=== PATIENT | female | born 1960 | race Hispanic/Latino ===

== ENCOUNTER 2023-02-04 20:17 | Emergency (ER) | payer SELFPAY ==
[2023-02-04 21:08] LABS: Absolute Lymphocytes (CBC) 2.6 K/uL (0.7-4.9); Hematocrit 43.3 % (36.0-45.0); Lymphocytes % 36.6 % (15.3-44.8); MCV 91.1 fL (80-100); MPV 7.9 fL (7.6-11.3); RBC Red Blood Cell Count 4.75 M/uL (3.86-4.86)
[2023-02-04 21:15] LABS: Protime INR 1.04
--- NOTE | 2023-02-04 21:20 | RAD REPORT ---
EXAM DESCRIPTION: RAD - Chest Single View - 02/04/2023 9:14 pm CLINICAL HISTORY: HTN Urgency Chest pain. COMPARISON: CHEST SINGLE VIEW dated 10/13/2008 FINDINGS: Portable technique limits examination quality. Mild pulmonary edema. The heart is moderately enlarged. No displaced fractures.Sternotomy wires. IMPRESSION: Mild CHF.
--- NOTE | 2023-02-04 21:21 | RAD REPORT ---
EXAM DESCRIPTION: CT - Head Brain Wo Cont - 02/04/2023 9:13 pm CLINICAL HISTORY: HEADACHE Headache, drowsiness COMPARISON: No comparisons TECHNIQUE: All CT scans are performed using dose optimization technique as appropriate and may inclu de automated exposure control or mA/KV adjustment according to patient size. FINDINGS: No intracranial hemorrhage, hydrocephalus or extra-axial fluid collection.No areas of brai n edema or evidence of midline shift. Mild vertebral atherosclerosis. The paranasal sinuses and mastoids are clear. The calvarium is intact. IMPRESSION: No acute intracranial abnormality.
[2023-02-04] MEDS ORDERED: HYDROMORPHONE HCL 0.5 MG/0.5 ML INJ ONE (21:39)
[2023-02-04] MEDS ORDERED: LABETALOL 20 MG/4ML SYRINGE IV ONE ×2 (21:39→23:15)
[2023-02-04] MEDS ORDERED: ONDANSETRON 4 MG/2 ML VIAL ONE (21:39)
[2023-02-04 21:42] LABS: Albumin 3.4 g/dL (3.4-5.0); Bilirubin Direct 0.1 mg/dL (0-0.2); Bilirubin Total 0.5 mg/dL (0.2-1.0); Potassium 3.3 mmol/L (3.5-5.1); Protein, Total 8.2 g/dL (6.4-8.2); Troponin High Sensitivity 13.9 pg/mL (<58.9)
[2023-02-05 03:12] VITALS: O2SAT 99
[2023-02-05 03:13] VITALS: BP 168/68; TEMP 98.1
--- NOTE | 2023-02-05 13:03 | EKG ---
Test Date: 2023-02-04 Test Time: 20:39:55 Wool Mixer: LL MEASUREMENT RESULTS: Intervals: Rate: 65 LA: 136 QRSD: 78 QT: 436 QTc: 453 [place]: P: 41 LA: 136 QRS: 16 T: 73 INTERPRETIVE STATEMENTS: Normal sinus rhythm Normal ECG Compared to ECG 10/16/2008 19:48:29 No significant changes Electronically Signed On 02-05-23 13:01:26 TOOLMAKER GRADE THREE by Brant Cheng
--- NOTE | 2023-02-05 13:03 | EKG ---
Test Date: 2023-02-04 Test Time: 21:04:32 Case Loader Operator: NATA MEASUREMENT RESULTS: Intervals: Rate: 78 NM: 138 QRSD: 80 QT: 424 QTc: 483 [place]: P: 63 NM: 138 QRS: 28 T: 73 INTERPRETIVE STATEMENTS: Sinus rhythm with occasional premature ventricular complexes Prolonged QT Abnormal ECG Compared to ECG 02/04/2023 20:39:55 Ventricular premature complex(es) now present Prolonged QT interval now present Electronically Signed On 02-05-23 13:01:23 OFFICE ADMIN by Brant Cheng
--- NOTE | 2023-02-21 14:20 | ER ---
Nurse's Notes [facility] Name: Kaylen Mead Age: 62 yrs Sex: Female : 1960 Arrival Date: 02/04/2023 Time: 20:19 Bed Treatment Private MD: Diagnosis: Hypertensive Urgency Presentation: 02/04 20:26 Chief complaint: Patient states: C/o chest pain, H/A, N/V, states pain is 10/10. ll3 Coronavirus screen: Vaccine status: Patient reports receiving the 2nd dose of the covid vaccine. headache, muscle pain, nausea, vomiting. Ebola Screen: No symptoms or risks identified at this time. Initial Sepsis Screen: Does the patient meet any 2 criteria? No. Patient's initial sepsis screen is negative. Does the patient have a suspected source of infection? No. Patient's initial sepsis screen is negative. Risk Assessment: Do you want to hurt yourself or someone else? Patient reports no desire to harm self or others. Onset of symptoms was February 04, 2023. Care prior to arrival: Medication(s) given: Motrin, at 1830. 20:26 Method Of Arrival: Ambulatory ll3 20:26 Acuity: SANTHOSH 2 ll3 Triage Assessment: 21:08 General: Appears in no apparent distress. uncomfortable, Behavior is calm, cooperative. kr3 Historical: - Allergies: 20:33 Ultram; ll3 - Home Meds: 20:33 Glipizide Oral [Active]; Atenolol Oral [Active]; ll3 - PMHx: 20:33 Diabetes mellitus; Hypertensive disorder; ll3 - PSHx: 20:33 triple bipass; Total abdominal hysterectomy; ll3 - Immunization history:: Client reports receiving the 2nd dose of the Covid vaccine. - Social history:: Smoking status: Patient denies any tobacco usage or history of. Screenin:08 [facility] ED Fall Risk Assessment (Adult) History of falling in the last 3 months, kr3 including since admission No falls in past 3 months (0 pts) Confusion or Disorientation No (0 pts) Intoxicated or Sedated No (0 pts) Impaired Gait No (0 pts) Mobility Assist Device Used No (0 pt) Altered Elimination No (0 pt) Score/Fall Risk Level 0 - 2 = Low Risk Oriented to surroundings, Maintained a safe environment, Educated pt \T\ family on fall prevention, incl call for assistance when getting out of bed, Assessed \T\ reinforced patient's understanding of fall precautions, Hourly rounding (assess needs \T\ fall precautionary measures) done. Abuse screen: Denies threats or abuse. Nutritional screening: No deficits noted. Tuberculosis screening: No symptoms or risk factors identified. Assessment: 21:12 Reassessment: pt taken to CT via stretcher. mb9 21:30 General: Appears uncomfortable, ill, Behavior is cooperative. Pain: Complains of pain mb9 in chest and left side of head Pain radiates to back Pain currently is 10 out of 10 on a pain scale. Quality of pain is described as tightness Pain began suddenly. Neuro: [place] Agitation-Sedation Scale (RASS): 0 - Alert and Calm Level of Consciousness is awake, alert, obeys commands, Oriented to person, place, time, situation, Appropriate for age Plant Operator Control Room Operator are equal bilaterally Moves all extremities. Speech is normal, Facial symmetry appears normal, Pupils are PERRLA, Intact Reports headache. Cardiovascular: Heart tones S1 S2 absent Rhythm is regular. Respiratory: Airway is patent Respiratory effort is even, unlabored, Respiratory pattern is tachypnea. GI: Abdomen is round non-distended, Bowel sounds present X 4 quads. Abd is soft Abd is non tender X 4 quads Reports nausea, vomiting. 21:30 : No signs and/or symptoms were reported regarding the genitourinary system. EENT: No mb9 signs and/or symptoms were reported regarding the EENT system. Derm: Skin is pink, warm \T\ dry. Musculoskeletal: Range of motion: intact in all extremities. 22:56 Reassessment: Patient and/or family updated on plan of care and expected duration. Pain mb9 level reassessed. Patient is alert, oriented x 3, equal unlabored respirations, skin warm/dry/pink. Patient states feeling better. 23:44 Reassessment: Report given to MICKIE Gonzalez. mb9 02/05 00:42 General: Appears in no apparent distress. comfortable, Behavior is calm, cooperative. aa9 Neuro: Level of Consciousness is awake, alert, obeys commands, Oriented to person, place, time, situation. Respiratory: Airway is patent Respiratory effort is even, unlabored. 01:42 Reassessment: Patient appears in no apparent distress at this time. Patient and/or aa9 family updated on plan of care and expected duration. Pain level reassessed. Patient is alert, oriented x 3, equal unlabored respirations, skin warm/dry/pink. Patient states symptoms have improved. Vital Signs: 02/04 20:26 BP 236 / 88; Pulse 68; Resp 18; Temp 97.3(TE); Pulse Ox 100% on R/A; Weight 90.72 kg ll3 (R); Height 5 ft. 0 in. ; Pain 10/10; 21:32 BP 242 / 95; Pulse 78; Resp 32; Pulse Ox 98% ; mb9 21:54 BP 160 / 91; Pulse 84; Resp 24; Pulse Ox 95% on R/A; mb9 22:56 BP 170 / 89; Pulse 88; Resp 24; Pulse Ox 98% on R/A; mb9 23:15 BP 158 / 81; Pulse 76; Resp 23; Pulse Ox 97% on R/A; mb9 02/05 00:42 BP 157 / 72; Pulse 72; Resp 19 S; Pulse Ox 99% on R/A; aa9 01:41 BP 168 / 68; Pulse 73; Resp 17 S; Temp 98.1(O); Pulse Ox 99% on R/A; aa9 02/04 20:26 Body Mass Index 39.06 (90.72 kg, 152.4 cm) ll3 02/04 20:26 Pain Scale: Adult ll3 ED Course: 02/04 20:19 Patient arrived in ED. ja2 20:33 Triage completed. ll3 20:33 Arm band placed on. ll3 20:37 Thelma Jasso MD is Attending Physician. sp3 20:45 Bed in low position. Call light in reach. Side rails up X 1. kr3 21:00 Basic Metabolic Panel Sent. jb5 21:00 CBC with Diff Sent. jb5 21:00 LFT's Sent. jb5 21:00 NT PRO-BNP Sent. jb5 21:00 PT-INR Sent. jb5 21:00 Troponin HS Sent. jb5 21:00 Inserted saline lock: 20 gauge in right antecubital area, using aseptic technique. jb5 Blood collected. 21:12 Basic Metabolic Panel Sent. mb9 21:12 CBC with Diff Sent. mb9 21:12 LFT's Sent. mb9 21:12 NT PRO-BNP Sent. mb9 21:12 PT-INR Sent. mb9 21:12 Troponin HS Sent. mb9 21:13 No provider procedures requiring assistance completed. mb9 21:14 CT Head Brain wo Cont In Process Unspecified. EDMS 21:15 XRAY Chest (1 view) In Process Unspecified. EDMS 21:43 Liz Asencio, RN is Primary Nurse. mb9 02/05 00:42 Troponin High Sensitivity: Draw 3 hours after first. Sent. aa9 01:42 IV discontinued, intact, bleeding controlled, No redness/swelling at site. Pressure aa9 dressing applied. Administered Medications: 02/04 21:38 Drug: HYDROmorphone IVP 0.5 mg Route: IVP; Site: right antecubital; mb9 23:04 Follow up: Response: No adverse reaction mb9 21:41 Drug: Labetalol IV 20 mg Route: IV; Rate: bolus; Infused Over: 2 mins; Site: right mb9 antecubital; 21:42 Drug: Ondansetron IVP 4 mg Route: IVP; Site: right antecubital; mb9 23:10 Follow up: Response: No adverse reaction mb9 23:15 Not Given (Physician Discretion): Labetalol IV 10 mg IV at calculated rate once mb9 Medication: 21:13 VIS not applicable for this client. mb9 Outcome: 02/05 01:32 Discharge ordered by . sp3 01:41 Discharged to home ambulatory, with significant other. aa9 01:41 Condition: stable 01:41 Discharge instructions given to patient, Instructed on discharge instructions, follow up and referral plans. medication usage, Demonstrated understanding of instructions, follow-up care. 01:42 Patient left the ED. aa9 Signatures: Dispatcher [employer] EDMS Antonieta Saravia jb5 Thelma Jasso MD MD sp3 Blanca Zafar Lynsea RN RN ll3 Lisa Ramirez RN RN aa9 Sadie Avendaño RN RN kr3 Liz Asencio, RN RN mb9
--- NOTE | 2023-02-21 14:20 | EDPHYS ---
Physician Documentation [facility] Name: Kaylen Mead Age: 62 yrs Sex: Female : 1960 Arrival Date: 02/04/2023 Time: 20:19 Bed Treatment Private MD: ED Physician Thelma Jasso HPI: 02/04 21:10 This 62 yrs old Female presents to ER via Ambulatory with complaints of sp3 Nausea/Vomiting, Chest Pain, Headache. 21:10 62-year-old female with history of diabetes and hypertension presents with chief sp3 complaint headache and chest tightness and hypertension at home. Patient states that earlier today she started having the symptoms and the headache was coupled with nausea. No prior history of cerebral bleed or CVA. Patient states she has had a prior "open heart surgery". Negative for neck pain, injury, back pain, shortness of breath, abdominal pain, diarrhea, rash, hematuria, any other symptoms at this time.. Historical: - Allergies: 20:33 Ultram; ll3 - Home Meds: 20:33 Glipizide Oral [Active]; Atenolol Oral [Active]; ll3 - PMHx: 20:33 Diabetes mellitus; Hypertensive disorder; ll3 - PSHx: 20:33 triple bipass; Total abdominal hysterectomy; ll3 - Immunization history:: Client reports receiving the 2nd dose of the Covid vaccine. - Social history:: Smoking status: Patient denies any tobacco usage or history of. ROS: 21:17 Constitutional: Negative for fever, chills, and weight loss, Eyes: Negative for injury, sp3 pain, redness, and discharge, ENT: Negative for injury, pain, and discharge, Neck: Negative for injury, pain, and swelling, Respiratory: Negative for shortness of breath, cough, wheezing, and pleuritic chest pain, Abdomen/GI: Negative for abdominal pain, nausea, vomiting, diarrhea, and constipation, Back: Negative for injury and pain, MS/Extremity: Negative for injury and deformity, Skin: Negative for injury, rash, and discoloration, Psych: Negative for depression, anxiety, suicide ideation, homicidal ideation, and hallucinations, Allergy/Immunology: Negative for hives, rash, and allergies, Endocrine: Negative for neck swelling, polydipsia, polyuria, polyphagia, and marked weight changes. 21:17 All other systems are negative. Exam: 21:18 Constitutional: This is a well developed, well nourished patient who is awake, alert, sp3 and in no acute distress. Head/Face: Normocephalic, atraumatic. Eyes: Pupils equal round and reactive to light, extra-ocular motions intact. Lids and lashes normal. Conjunctiva and sclera are non-icteric and not injected. Cornea within normal limits. Periorbital areas with no swelling, redness, or edema. ENT: Nares patent. No nasal discharge, no septal abnormalities noted. External auditory canals are clear. Oropharynx with no redness, swelling, or masses, exudates, or evidence of obstruction, uvula midline. Mucous membranes moist. Neck: Trachea midline, no thyromegaly or masses palpated, and no cervical lymphadenopathy. Supple, full range of motion without nuchal rigidity, or vertebral point tenderness. No Meningismus. Chest/axilla: Normal chest wall appearance and motion. Nontender with no deformity. No lesions are appreciated. Cardiovascular: Regular rate and rhythm with a normal S1 and S2. No gallops, murmurs, or rubs. Normal PMI, no JVD. No pulse deficits. Respiratory: Lungs have equal breath sounds bilaterally, clear to auscultation and percussion. No rales, rhonchi or wheezes noted. No increased work of breathing, no retractions or nasal flaring. Abdomen/GI: Soft, non-tender, with normal bowel sounds. No distension or tympany. No guarding or rebound. No evidence of tenderness throughout. Back: No spinal tenderness. No costovertebral tenderness. Full range of motion. Skin: Warm, dry with normal turgor. Normal color with no rashes, no lesions, and no evidence of cellulitis. MS/ Extremity: Pulses equal, no cyanosis. Neurovascular intact. Full, normal range of motion. Neuro: Awake and alert, GCS 15, oriented to person, place, time, and situation. Cranial nerves II-XII grossly intact. Motor strength 5/5 in all extremities. Sensory grossly intact. Cerebellar exam normal. Normal gait. Psych: Awake, alert, with orientation to person, place and time. Behavior, mood, and affect are within normal limits. 21:18 ECG was reviewed by the Attending Physician. EKG demonstrates normal sinus rhythm at 65 bpm with normal axis, normal QRS, nonspecific diffuse ST/T changes without evidence of ischemia. Vital Signs: 20:26 BP 236 / 88; Pulse 68; Resp 18; Temp 97.3(TE); Pulse Ox 100% on R/A; Weight 90.72 kg ll3 (R); Height 5 ft. 0 in. ; Pain 10/10; 21:32 BP 242 / 95; Pulse 78; Resp 32; Pulse Ox 98% ; mb9 21:54 BP 160 / 91; Pulse 84; Resp 24; Pulse Ox 95% on R/A; mb9 22:56 BP 170 / 89; Pulse 88; Resp 24; Pulse Ox 98% on R/A; mb9 23:15 BP 158 / 81; Pulse 76; Resp 23; Pulse Ox 97% on R/A; mb9 02/05 00:42 BP 157 / 72; Pulse 72; Resp 19 S; Pulse Ox 99% on R/A; aa9 01:41 BP 168 / 68; Pulse 73; Resp 17 S; Temp 98.1(O); Pulse Ox 99% on R/A; aa9 02/04 20:26 Body Mass Index 39.06 (90.72 kg, 152.4 cm) ll3 02/04 20:26 Pain Scale: Adult ll3 MDM: 02/04 20:43 Patient medically screened. sp3 21:31 Data reviewed: vital signs, nurses notes, old medical records, lab test result(s), EKG, sp3 radiologic studies. ED course: 62-year-old female with hypertensive urgency. Stat CT scan of the head and EKG were ordered and remainder of lab work is pending. Will assess for end organ damage. Labetalol 20 mg IV has been ordered and we will escalate that as needed for rapid control of her blood pressure symptoms.. 02/05 01:06 ED course: Blood pressure remained stable without need for repeat medication. Only the sp3 single 20 mg dose was given on arrival. Repeat troponin is pending and if negative will discharge patient home at this time. Patient states she feels a lot better and will follow-up with her PCP.. 02/04 20:42 Order name: Basic Metabolic Panel; Complete Time: 22:35 sp3 02/04 20:42 Order name: CBC with Diff; Complete Time: 22:35 sp3 02/04 20:42 Order name: LFT's; Complete Time: 22:35 sp3 02/04 20:42 Order name: NT PRO-BNP; Complete Time: 22:35 sp3 02/04 20:42 Order name: PT-INR; Complete Time: 22:35 sp3 02/04 20:42 Order name: Troponin HS; Complete Time: 22:35 sp3 02/04 22:36 Order name: Troponin High Sensitivity: Draw 3 hours after first. sp3 02/04 20:42 Order name: XRAY Chest (1 view); Complete Time: 22:35 sp3 02/04 20:42 Order name: CT Head Brain wo Cont; Complete Time: 22:35 sp3 02/04 20:42 Order name: EKG; Complete Time: 20:43 sp3 02/04 20:42 Order name: Cardiac monitoring; Complete Time: 20:55 sp3 02/04 20:42 Order name: EKG - Nurse/Tech; Complete Time: 21:07 sp3 02/04 20:42 Order name: IV Saline Lock; Complete Time: 20:59 sp3 02/04 20:42 Order name: Labs collected and sent; Complete Time: 21:00 sp3 02/04 20:42 Order name: O2 Per Protocol; Complete Time: 20:55 sp3 02/04 20:42 Order name: O2 Sat Monitoring; Complete Time: 20:55 sp3 Administered Medications: 02/04 21:38 Drug: HYDROmorphone IVP 0.5 mg Route: IVP; Site: right antecubital; mb9 23:04 Follow up: Response: No adverse reaction mb9 21:41 Drug: Labetalol IV 20 mg Route: IV; Rate: bolus; Infused Over: 2 mins; Site: right mb9 antecubital; 21:42 Drug: Ondansetron IVP 4 mg Route: IVP; Site: right antecubital; mb9 23:10 Follow up: Response: No adverse reaction mb9 23:15 Not Given (Physician Discretion): Labetalol IV 10 mg IV at calculated rate once mb9 Disposition Summary: 02/05/23 01:32 Discharge Ordered Location: Home sp3 Condition: Stable sp3 Diagnosis - Hypertensive Urgency sp3 Discharge Instructions: - Discharge Summary Sheet sp3 - Hypertension, Adult sp3 Forms: - Medication Reconciliation Form sp3 - Thank You Letter sp3 - Antibiotic Education sp3 - Prescription Opioid Use sp3 Signatures: Dispatcher [employer] EDThelma Ortiz MD MD sp3 Senia Brandt RN RN ll3 Liz Asencio RN RN mb9
== END 2023-02-05 01:42 | disposition home or self-care (01) ==
LOC: ER 20:17
DX: I16.0 Hypertensive urgency (principal); Z20.822 Contact with and (suspected) exposure to COVID-19
CPT/HCPCS: 36415; 70450; 71045; 80048; 80076; 83880; 84484; 85025; 85610; 93005; 96374; 96375; 99284; J1170; J2405

== ENCOUNTER 2023-02-05 13:03 | Inpatient (IN) | payer SELFPAY ==
[2023-02-05] MEDS ORDERED: LABETALOL 20 MG/4ML SYRINGE IV ONE (13:49)
[2023-02-05 13:58] LABS: Absolute Lymphocytes (CBC) 2.3 K/uL (0.7-4.9); Hematocrit 42.8 % (36.0-45.0); Lymphocytes % 35.4 % (15.3-44.8); MCV 91.8 fL (80-100); MPV 7.9 fL (7.6-11.3); RBC Red Blood Cell Count 4.66 M/uL (3.86-4.86)
[2023-02-05 14:07] LABS: Potassium 3.5 mmol/L (3.5-5.1); Troponin High Sensitivity 12.7 pg/mL (<58.9)
--- NOTE | 2023-02-05 14:11 | RAD REPORT ---
[facility] 1[facility]56 pm CLINICAL HISTORY: HTN Urgency COMPARISON: Chest Single View dated 02/04/2023; CHEST SINGLE VIEW dated 10/13/2008 TECHNIQUE: Portable AP view of the chest. FINDINGS: The lungs are clear.Mild central vascular congestion again noted. No pneumothorax or effus ion. Stable moderate cardiomegaly. Sequelae of prior CABG. Mediastinal contours are unchanged. IMPRESSION: No acute pulmonary process. Stable findings as above.
[2023-02-05] MEDS ORDERED: dexAMETHasone 10 MG/ML VIAL ONE (14:34)
[2023-02-05] MEDS ORDERED: DIPHENHYDRAMINE 50 MG/ML VIAL ONE (14:34)
[2023-02-05] MEDS ORDERED: METOCLOPRAMIDE 10 MG/2mL INJ ONE (14:34)
[2023-02-05] MEDS ORDERED: NA CHLORIDE 0.9% 50 ML ONE (14:34)
--- NOTE | 2023-02-05 14:44 | RAD REPORT ---
EXAM DESCRIPTION: CT - Head Brain Wo Cont - 02/05/2023 2:28 pm CLINICAL HISTORY: HEADACHE COMPARISON: Head Brain Wo Cont dated 02/04/2023; Chest Single View dated 02/05/2023 TECHNIQUE: Noncontrast head CT images ad were obtained without IV contrast. Multiplanar reformats we re generated and reviewed. All CT scans are performed using dose optimization technique as appropriate and may include automated exposure control or mA/KV adjustment according to patient size. FINDINGS: No intracranial hemorrhage, mass, or edema. Midline structures are unremarkable. Normal ventricular caliber for age. Mario-white matter differentiation is preserved, without evidence of acute infarct. No abnormal extra- axial fluid collections. Mastoid air cells and visualized portions of the paranasal sinuses are clear. No acute bony findings. IMPRESSION: No evidence of an acute intracranial process.
[2023-02-05] MEDS ORDERED: ONDANSETRON 4 MG/2 ML VIAL IV PRN (15:37)
[2023-02-05] MEDS ORDERED: ACETAMINOPHEN 325 MG TABLET PO PRN (15:37)
[2023-02-05] MEDS ORDERED: HYDRALAZINE HCL 20 MG/ML VIAL IV PRN (15:40)
[2023-02-05] MEDS ORDERED: GLUCAGON 1 MG/VIAL IM PRN (15:42)
--- NOTE | 2023-02-05 15:45 | P.HP ---
Certification for Inpatient Patient admitted to: Observation With expected LOS: <2 Midnights Patient will require the following post-hospital care: None Practitioner: I am a practitioner with admitting privileges, knowledge of patient current condition, hospital course, and medical plan of care. Services: Services provided to patient in accordance with Admission requirements found in Title 42 Section 412.3 of the Code of Federal Regulations Patient History Date of Service: 02/05/23 Reason for admission: Headache History of Present Illness: Patient is a 62 old female with a past medical history significant for hypertension, DM 2 who presents with complaint of intractable headache onset yesterday. Patient was seen in the hospital yesterday for similar symptoms and discharged. She also reported that her blood pressure has been very elevated. Patient reported associated signs and symptoms of nausea, dizziness and vomiting. Patient reported that she followed up with her PCP and was placed on new blood pressure medications for hypertension. Patient denies any other signs and symptoms. Symptoms are aggravated or relieved by nothing. Patient decided to present to the hospital due to worsening symptoms. Allergies tramadol [From Ultram] Allergy (Intermediate, Verified 02/05/23 16:40) Nausea/Vomiting - Past Medical/Surgical History -: HTN -: DM 2 Past Surgical History: Reviewed- Non-Contributory - Family History Family History: Reviewed- Non-Contributory - Social History Smoking Status: Never smoker Alcohol use: No CD- Drugs: No Caffeine use: No Place of Residence: Home Review of Systems General: Unremarkable Eyes: Unremarkable ENT: Unremarkable Respiratory: Unremarkable Cardiovascular: Unremarkable Gastrointestinal: Nausea, Vomiting Genitourinary: Unremarkable Integumentary: Unremarkable Neurological: Other (COTE, Dizziness) Lymphatics: Unremarkable Physical Examination - Physical Exam General: Alert, In no apparent distress, Oriented x3, Cooperative HEENT: Atraumatic, PERRLA, Mucous membr. moist/pink, EOMI, Sclerae nonicteric Neck: Supple, 2+ carotid pulse no bruit, No LAD, Without JVD or thyroid abnormality Respiratory: Clear to auscultation bilaterally, Normal air movement Cardiovascular: Regular rate/rhythm, Normal S1 S2 Capillary refill: <2 Seconds Gastrointestinal: Normal bowel sounds, Soft and benign, Non-distended, No tenderness Musculoskeletal: No clubbing, No tenderness Integumentary: No rashes, No breakdown Neurological: Normal speech, Normal tone, Normal affect Lymphatics: No axilla or inguinal lymphadenopathy - Studies Laboratory Data (last 24 hrs) 02/05/23 13:35: WBC 6.60, Hgb 14.6, Hct 42.8, Plt Count 296 02/05/23 13:35: Sodium 138, Potassium 3.5, BUN 15, Creatinine 0.81, Glucose 195 H Assessment and Plan - Plan --Intractable headache. CT head unremarkable for any acute intracranial abnormality. Neurology consulted. Patient placed on Topamax and fioricet as needed Further management per neurologist. --DM2. BS monitoring with sliding scale insulin. --Hypertensive urgency. Echocardiogram pending to assess for hypertensive heart disease. Blood pressure medications modified. Continue hydralazine as needed. We will continue to monitor blood pressure levels --Nausea and vomiting. Antiemetics on board. --CKD 2. Stable. We will continue to monitor renal functions. --DVT prophylaxis with Lovenox subQ. Discharge Plan: Home Plan to discharge in: 48 Hours - Advance Directives Does patient have a Living Will: No Does patient have a Durable POA for Healthcare: No - Code Status/Comfort Care Code Status Assessed: Yes Physician Review: Patient Assessed, Agree with Above Assessment and Plan Critical Care: No
[2023-02-05] MEDS ORDERED: D10W 250 ML BAG IV PRN (16:04)
[2023-02-05] MEDS: INSULIN -REGULAR HUMAN 50 UNIT/0.5 ML ML SQ SCH ×2 (16:30→20:48)
[2023-02-05 16:31] LABS: Magnesium 1.9 mg/dL (1.6-2.4); Phosphorus 3.1 mg/dL (2.5-4.9); Thyroid Stimulating Hormone 1.92 uIU/mL (0.358-3.740)
[2023-02-05] MEDS ORDERED: cloNIDine HCL 0.1 MG TAB ONE (16:31)
[2023-02-05] MEDS: cloNIDine HCL 0.1 MG TAB PO SCH ×2 (16:41→20:46)
[2023-02-05] MEDS: ENOXAPARIN 40 MG/0.4 ML SQ SCH (17:00)
[2023-02-05 18:10] LABS: SARS-CoV-2 Antigen Rapid Res Negative (Negative)
[2023-02-05 18:34] VITALS: BMI 38.8
[2023-02-05] MEDS ORDERED: ENOXAPARIN 40 MG/0.4 ML SQ ONE (19:39)
[2023-02-05] MEDS: TOPIRAMATE 25 MG TAB PO SCH (20:47)
[2023-02-06 03:41] LABS: Absolute Lymphocytes (CBC) 0.9 K/uL (0.7-4.9); Lymphocytes % 13.8 % (15.3-44.8); MCV 92.9 fL (80-100); MPV 8.2 fL (7.6-11.3)
[2023-02-06 03:52] LABS: Potassium 4.2 mmol/L (3.5-5.1)
[2023-02-06 06:32] LABS: Specific Gravity 1.025 (1.005-1.030); Urine Bilirubin Negative (Negative); Urine Blood Negative (Negative); Urine Clarity Clear (Clear); Urine Color Yellow (Yellow); Urine Glucose 2+ (Negative); Urine Protein Negative (Negative); Urine pH 5.5 (5.0-7.0)
[2023-02-06] MEDS: INSULIN -REGULAR HUMAN 50 UNIT/0.5 ML ML SQ SCH ×4 (09:30→21:00)
[2023-02-06] MEDS: ASPIRIN 81 MG CHEWABLE TABLET PO SCH (09:31)
[2023-02-06] MEDS: cloNIDine HCL 0.1 MG TAB PO SCH ×3 (09:31→21:56)
[2023-02-06] MEDS: ENOXAPARIN 40 MG/0.4 ML SQ SCH (09:31)
[2023-02-06] MEDS: ACETAMIN/CAFFEINE/BUTALB TAB PO PRN ×2 (11:40→18:07)
[2023-02-06] MEDS: HYDROCODONE/APAP 5/325 MG TAB PO PRN (13:37)
--- NOTE | 2023-02-06 16:23 | EKG ---
Test Date: 2023-02-05 Test Time: 13:55:59 Revenue Accountant: LML MEASUREMENT RESULTS: Intervals: Rate: 65 [place]: 136 QRSD: 80 QT: 436 QTc: 453 [place]: P: 41 [place]: 136 QRS: 27 T: 54 INTERPRETIVE STATEMENTS: Normal sinus rhythm Normal ECG Compared to ECG 02/04/2023 21:04:32 Ventricular premature complex(es) no longer present Prolonged QT interval no longer present Electronically Signed On 02-06-23 16:20:07 INSURANCE ACCOUNT SPECIALIST by Brant Cheng
[2023-02-06] MEDS: TOPIRAMATE 25 MG TAB PO SCH (21:56)
[2023-02-07] MEDS: HYDROCODONE/APAP 5/325 MG TAB PO PRN (03:27)
[2023-02-07] MEDS: INSULIN -REGULAR HUMAN 50 UNIT/0.5 ML ML SQ SCH ×3 (07:30→16:07)
--- NOTE | 2023-02-07 07:37 | ECHO ---
HEIGHT: 5 ft 0 in WEIGHT: 198 lb 6.657 oz DATE OF STUDY: 02/06/[address]: Maurizio Chris 2-DIMENSIONAL: YES M.MODE: YES DOPPLER: YES COLOR FLOW: YES TDS: PORTABLE: YES DEFINITY: BUBBLE STUDY: DIAGNOSIS: HYPERTENSIVE URGENCY CARDIAC HISTORY: CATHERIZATION: YES SURGERY: YES PROSTHETIC VALVE: NO PACEMAKER: NO MEASUREMENTS (cm) DIASTOLIC (NORMALS) SYSTOLIC (NORMALS) IVSd 1.0 (0.6-1.2) LA Diam 2.4 (1.9-4.0) LVEF 55-60% LVIDd 4.5 (3.5-5.7) LVIDs 3.4 (2.0-3.5) %FS 26% LVPWd 1.1 (0.6-1.2) Ao Diam 2.3 (2.0-3.7) 2 DIMENSIONAL ASSESSMENT: RIGHT ATRIUM: NORMAL LEFT ATRIUM: NORMAL RIGHT VENTRICLE: NORMAL LEFT VENTRICLE: NORMAL TRICUSPID VALVE: MILD TRICUSPID REGURGITATION MITRAL VALVE: MILD MITRAL REGURGITATION PULMONIC VALVE: NORMAL AORTIC VALVE: NORMAL PERICARDIAL EFFUSION: NONE AORTIC ROOT: NORMAL LEFT VENTRICULAR WALL MOTION: NORMAL DOPPLER/COLOR FLOW: SEE BELOW COMMENTS: 1. NORMAL LEFT VENTRICULAR EJECTION FRACTION 55-60% 2. NORMAL WALL MOTION 3. MILD TRICUSPID REGURGITATION 4. GRADE I DIASTOLIC DYSFUNCTION TECHNOLOGIST: CRYSTAL MAGALLON
[2023-02-07] MEDS: ASPIRIN 81 MG CHEWABLE TABLET PO SCH (08:35)
[2023-02-07] MEDS: cloNIDine HCL 0.1 MG TAB PO SCH ×2 (08:36→14:00)
[2023-02-07] MEDS: ENOXAPARIN 40 MG/0.4 ML SQ SCH (08:36)
[2023-02-07] MEDS: ACETAMIN/CAFFEINE/BUTALB TAB PO PRN (08:58)
[2023-02-07 12:25] VITALS: TEMP 97.2
[2023-02-07] MEDS ORDERED: HYDRALAZINE HCL 25 MG TABLET PO ONE (15:00)
[2023-02-07 15:23] VITALS: O2SAT 98
[2023-02-07] MEDS ORDERED: LORazepam 2 MG/ML VIAL IV ONE (15:34)
[2023-02-07 16:56] VITALS: BP 130/66
--- NOTE | 2023-02-07 20:37 | RAD REPORT ---
EXAM DESCRIPTION: MRI - Brain W/Wo Cont - 02/07/2023 4:25 pm CLINICAL HISTORY: Headache. Evaluate for mass COMPARISON: Noncontrast head CT the same day. Prior head CT 02/04/2023 TECHNIQUE: Multiplanar multisequence MRI of the brain performed performed before and after intraveno us administration of 20 mL MultiHance. FINDINGS: Punctate foci of diffusion restriction noted along the medial left temporal lobe breast cy st 5 image 61/75, and the left aspect of the splenium corpus callosum, image 63 of the same series . No evidence of acute intracranial hemorrhage or abnormal extra-axial fluid collections. Few punctate foci of susceptibility signal abnormality in the left subcortical frontal white matter and right alyssia etal cortical/subcortical region, may reflect remote micro hemorrhages. Mild diffuse parenchymal volume loss. Ventricular caliber otherwise within normal for age. Midline st ructures are unremarkable. Mild burden of scattered subcortical and deep white matter T2/FLAIR hyperintensities,, as well as few pontine T2 hyperintensities as well, nonspecific, but suggestive of chronic small vessel ischemic ch anges. No mass effect or midline shift. Major vascular flow voids are preserved. Mastoid air cells and paranasal sinuses are clear. IMPRESSION: Punctate foci of acute to subacute infarct along the medial left temporal lobe and left aspect of the corpus callosum splenium. Given distribution, these could be of embolic etiology. Few scattered foci of susceptibility signal abnormality, may relate to remote micro hemorrhages. Mild burden of deep white matter T2 hyperintensities, nonspecific, but suggestive of chronic small vessel ischemic changes as above. The findings were communicated to Curt King on 02/07/2023 at 20:31 hours.
--- NOTE | 2023-02-21 15:25 | EDPHYS ---
Physician Documentation [facility] Name: Kaylen Mead Age: 62 yrs Sex: Female : 1960 Arrival Date: 02/05/2023 Time: 13:07 Bed 18 Private MD: ED Physician Moustapha Fink HPI: 02/05 14:33 This 62 yrs old Female presents to ER via Ambulatory with complaints of ms3 Headache, Vomiting. 14:33 62-year-old female with past medical history of diabetes, hypertension presents ms3 headache that began today. Patient states she was seen last night in the emergency department with elevated blood pressure and her pain was improved and she was discharged. Patient states the pain is located in the left side of her head, rated a 10/10 and hurts. Patient endorses nausea, vomiting. Patient states the pain is worse with light or movement. Patient denies alleviating factors. Patient denies fevers, chills. Of note patient states she saw her primary care physician this morning and her blood pressure medications were changed. Patient has not picked her prescription up for her new medications. Historical: - Allergies: 13:23 Ultram; ap3 - Home Meds: 13:25 Atenolol Oral [Active]; Glipizide Oral [Active]; ap3 - PMHx: 13:23 diabetes mellitus; Hypertensive disorder; ap3 - PSHx: 13:23 Total abdominal hysterectomy; triple bipass; ap3 - Immunization history:: Client reports receiving the 2nd dose of the Covid vaccine, Flu vaccine is not up to date. - Social history:: Smoking status: Patient denies any tobacco usage or history of. ROS: 14:33 Constitutional: Negative for fever, and chills. Neck: Negative for injury, pain, and ms3 swelling, Cardiovascular: Negative for chest pain, and palpitations. Respiratory: Negative for shortness of breath, cough, wheezing, and pleuritic chest pain. 14:33 MS/Extremity: Negative for injury and deformity, Skin: Negative for injury, rash, and discoloration. 14:33 Abdomen/GI: Positive for nausea, vomiting. 14:33 All other systems are negative. Exam: 14:33 Constitutional: This is a well developed, well nourished patient who is awake, alert, ms3 and in no acute distress. Head/Face: Normocephalic, atraumatic. Neck: Trachea midline, no cervical lymphadenopathy. Supple, full range of motion without nuchal rigidity, or vertebral point tenderness. No Meningismus. Chest/axilla: Normal chest wall appearance and motion. Nontender with no deformity. Cardiovascular: Regular rate and rhythm with a normal S1 and S2. No gallops, murmurs, or rubs. Normal PMI, no JVD. No pulse deficits. Respiratory: Lungs have equal breath sounds bilaterally, clear to auscultation and percussion. No rales, rhonchi or wheezes noted. No increased work of breathing, no retractions or nasal flaring. Abdomen/GI: Soft, non-tender, with normal bowel sounds. No distension or tympany. No guarding or rebound. No evidence of tenderness throughout. Skin: Warm, dry with normal turgor. Normal color with no rashes, no lesions, and no evidence of cellulitis. MS/ Extremity: Pulses equal, no cyanosis. Neurovascular intact. Full, normal range of motion. Neuro: Awake and alert, GCS 15, oriented to person, place, time, and situation. Cranial nerves II-XII grossly intact. Motor strength 5/5 in all extremities. Sensory grossly intact. Cerebellar exam normal. Normal gait. 16:03 ECG was reviewed by the Attending Physician. ms3 Vital Signs: 13:24 BP 224 / 87; Pulse 71; Resp 17; Temp 98.7; Pulse Ox 100% ; Weight 90.72 kg; Height 5 ap3 ft. 0 in. ; Pain 10/10; 13:42 BP 199 / 75; ll1 14:25 BP 191 / 78; Pulse 75; Resp 18; Pulse Ox 95% on R/A; ll1 15:25 BP 188 / 87; Pulse 71; Resp 17; Pulse Ox 94% on R/A; Pain 6/10; ll1 16:21 BP 208 / 97; Pulse 82; ll1 19:15 BP 140 / 77; Pulse 79; Resp 16 S; Pulse Ox 92% on R/A; aa9 13:24 Body Mass Index 39.06 (90.72 kg, 152.4 cm) ap3 13:24 Pain Scale: Adult ap3 15:25 Pain Scale: Adult ll1 MDM: 13:20 Patient medically screened. ms3 14:33 Differential diagnosis: hypertensive headache, intracerebral hemorrhage, subarachnoid ms3 bleed, tension headache. 14:35 Management of patient was discussed with the following: Retrieval Specialist: Dr King. Agrees ms3 with repeat CT Head. BP control, IVF, and observation.. 15:26 Data reviewed: vital signs, nurses notes, lab test result(s), EKG, radiologic studies, ms3 and as a result, I will admit patient. Consideration of Admission/Observation Patient was admitted/placed on observation. I considered the following discharge prescriptions or medication management in the emergency department Medications were administered in the Emergency Department. See MAR. Independent interpretation of the following test(s) in the Emergency Department EKG: See my EKG interpretation above nuclear monitoring technician: rate is 75 beats/min, Rhythm is normal sinus rhythm, regular, with no ectopy, Interpretation: normal rate, normal rhythm. Counseling: I had a detailed discussion with the patient and/or guardian regarding: the historical points, exam findings, and any diagnostic results supporting the discharge/admit diagnosis, lab results, radiology results, the need for further work-up and treatment in the hospital. ED course: Discussed case with Dr. Cintron and he accepts patient. All questions were answered. Discussed plan for admission with the patient and her family and they understand and agree with plan.. 02/05 13:28 Order name: Basic Metabolic Panel; Complete Time: 14:09 ms3 02/05 13:28 Order name: CBC with Diff; Complete Time: 14:09 ms3 02/05 13:28 Order name: Troponin HS; Complete Time: 14:09 ms3 02/05 15:54 Order name: SARS-COV-2 Antigen Rapid 02/05 16:31 Order name: Phosphorus; Complete Time: 18:15 EDMS 02/05 16:31 Order name: Lipid Profile; Complete Time: 18:15 EDMS 02/05 16:31 Order name: T4 Free; Complete Time: 18:15 EDMS 02/05 16:31 Order name: Magnesium; Complete Time: 18:15 EDMS 02/05 16:31 Order name: Thyroid Stimulating Hormone; Complete Time: 18:15 EDMS 02/05 17:17 Order name: Hemoglobin A1c; Complete Time: 18:15 EDMS 02/05 18:10 Order name: SARS-COV-2 Antigen Rapid; Complete Time: 18:15 EDMS 02/05 13:28 Order name: XRAY Chest (1 view); Complete Time: 14:19 ms3 02/05 14:08 Order name: CT Head Brain wo Cont; Complete Time: 14:57 ms3 02/05 13:28 Order name: EKG; Complete Time: 13:29 ms3 02/05 13:28 Order name: Cardiac monitoring; Complete Time: 13:57 ms3 02/05 13:28 Order name: EKG - Nurse/Tech; Complete Time: 13:57 ms3 02/05 13:28 Order name: IV Saline Lock; Complete Time: 13:33 ms3 02/05 13:28 Order name: Labs collected and sent; Complete Time: 13:33 ms3 02/05 13:28 Order name: O2 Per Protocol; Complete Time: 13:33 ms3 02/05 13:28 Order name: O2 Sat Monitoring; Complete Time: 13:33 ms3 EC:03 Rate is 65 beats/min. Rhythm is regular. QRS [place] is Normal. OR interval is normal. QRS ms3 interval is normal. Clinical impression: Normal ECG. Interpreted by me. Reviewed by me. Administered Medications: 14:05 Drug: Labetalol IV 20 mg Route: IV; Rate: calculated rate; Site: left antecubital; ll1 14:39 Follow up: Response: No adverse reaction; IV Status: Completed infusion; IV Intake: 4ml ll1 14:38 Drug: metoCLOPramide IVP 10 mg Route: IVP; Site: left antecubital; ll1 15:29 Follow up: Response: No adverse reaction ll1 14:38 Drug: diphenhydrAMINE IVP 25 mg Route: IVP; Site: left antecubital; ll1 15:29 Follow up: Response: No adverse reaction ll1 14:39 Drug: Decadron - Dexamethasone IVP 10 mg Route: IVP; Site: left antecubital; ll1 15:29 Follow up: Response: No adverse reaction ll1 Disposition Summary: 02/05/23 15:34 Hospitalization Ordered Hospitalization Status: Inpatient Admission ms3 Provider: Sanjuanita Rosado ms3 Location: Telemetry/MedSurg (Inpatient) ms3 Condition: Stable ms3 Problem: new ms3 Symptoms: are unchanged ms3 Bed/Room Type: Standard ms3 Room Assignment: [facility](02/05/23 18:59) eb1 Diagnosis - Hypertensive urgency ms3 - Headache ms3 Discharge Instructions: - Discharge Summary Sheet bd Forms: - Family Work Release bd - Medication Reconciliation Form ms3 - SBAR form ms3 Signatures: Dispatcher [employer] Dorene Castillo RN RN ap3 Georgina Young RN RN eb1 Hamida Burrell RN RN ll1 Moustapha Fink DO DO ms3 Corrections: (The following items were deleted from the chart) 18:59 15:34 ms3 eb1
--- NOTE | 2023-02-21 15:25 | ER ---
Nurse's Notes [facility] Name: Kaylen Mead Age: 62 yrs Sex: Female : 1960 Arrival Date: 02/05/2023 Time: 13:07 Bed 18 Private MD: Diagnosis: Hypertensive urgency;Headache Presentation: 02/05 13:22 Chief complaint: Patient states: she has a headache that started yesterday, and she ap3 came last night to be evaluated. she reports the medication she received in the ED last night helped her headache, however it has returned. Patient states she is also nauseated, and is vomiting. Coronavirus screen: At this time, the client does not indicate any symptoms associated with coronavirus-19. Ebola Screen: No symptoms or risks identified at this time. Initial Sepsis Screen: Does the patient meet any 2 criteria? No. Patient's initial sepsis screen is negative. Does the patient have a suspected source of infection? No. Patient's initial sepsis screen is negative. Risk Assessment: Do you want to hurt yourself or someone else? Patient reports no desire to harm self or others. 13:22 Method Of Arrival: Ambulatory ap3 13:24 Onset of symptoms was February 04, 2023. ap3 13:24 Acuity: SANTHOSH 2 ap3 Triage Assessment: 13:23 Headache History: The patient has had previous headaches and this one is similar to ap3 previous episodes. General: Appears uncomfortable, Behavior is calm, cooperative. Pain: Complains of pain in left side of head, left ear Pain currently is 10 out of 10 on a pain scale. Pain began 1 day ago. 13:24 Pain: Also complains of nausea. Neuro: Reports headache. Cardiovascular: Patient's skin ap3 is warm and dry. Respiratory: Airway is patent Respiratory effort is even, unlabored, Respiratory pattern is regular, symmetrical. Historical: - Allergies: 13:23 Ultram; ap3 - Home Meds: 13:25 Atenolol Oral [Active]; Glipizide Oral [Active]; ap3 - PMHx: 13:23 diabetes mellitus; Hypertensive disorder; ap3 - PSHx: 13:23 Total abdominal hysterectomy; triple bipass; ap3 - Immunization history:: Client reports receiving the 2nd dose of the Covid vaccine, Flu vaccine is not up to date. - Social history:: Smoking status: Patient denies any tobacco usage or history of. Screenin:[facility] ED Fall Risk Assessment (Adult) History of falling in the last 3 months, ap3 including since admission No falls in past 3 months (0 pts). Abuse screen: Denies threats or abuse. Nutritional screening: No deficits noted. Tuberculosis screening: No symptoms or risk factors identified. Assessment: 13:42 Reassessment: No changes from previously documented assessment. Patient and/or family ll1 updated on plan of care and expected duration. Pain level reassessed. Patient is alert, oriented x 3, equal unlabored respirations, skin warm/dry/pink. 14:05 Reassessment: No changes from previously documented assessment. Patient and/or family ll1 updated on plan of care and expected duration. Pain level reassessed. Patient is alert, oriented x 3, equal unlabored respirations, skin warm/dry/pink. 14:25 Reassessment: No changes from previously documented assessment. To CT via wheelchair. ll1 15:29 Reassessment: No changes from previously documented assessment. Patient and/or family ll1 updated on plan of care and expected duration. Pain level reassessed. Patient is alert, oriented x 3, equal unlabored respirations, skin warm/dry/pink. 16:22 Reassessment: No changes from previously documented assessment. Patient and/or family ll1 updated on plan of care and expected duration. Pain level reassessed. Patient is alert, oriented x 3, equal unlabored respirations, skin warm/dry/pink. 16:39 Reassessment: No changes from previously documented assessment. Patient and/or family ll1 updated on plan of care and expected duration. Pain level reassessed. Patient is alert, oriented x 3, equal unlabored respirations, skin warm/dry/pink. 19:10 General: Appears comfortable, Behavior is calm. General: pt low mcgrath's in bed, eyes aa9 closed, family member at bedside, notified of room assignment, denies concerns at this time. . Respiratory: Airway is patent Respiratory effort is even, unlabored. 19:42 General: report provided to mickie Villarreal. aa9 Vital Signs: 13:24 BP 224 / 87; Pulse 71; Resp 17; Temp 98.7; Pulse Ox 100% ; Weight 90.72 kg; Height 5 ap3 ft. 0 in. ; Pain 10/10; 13:42 BP 199 / 75; ll1 14:25 BP 191 / 78; Pulse 75; Resp 18; Pulse Ox 95% on R/A; ll1 15:25 BP 188 / 87; Pulse 71; Resp 17; Pulse Ox 94% on R/A; Pain 6/10; ll1 16:21 BP 208 / 97; Pulse 82; ll1 19:15 BP 140 / 77; Pulse 79; Resp 16 S; Pulse Ox 92% on R/A; aa9 13:24 Body Mass Index 39.06 (90.72 kg, 152.4 cm) ap3 13:24 Pain Scale: Adult ap3 15:25 Pain Scale: Adult ll1 ED Course: 13:07 Patient arrived in ED. mr 13:09 Moustapha Fink DO is Attending Physician. ms3 13:25 Triage completed. ap3 13:25 Arm band placed on right wrist. ap3 13:32 Hamida Burrell, RN is Primary Nurse. ll1 13:35 Missed attempt(s): 22 gauge in right antecubital area. Bleeding controlled, band aid ll1 applied, catheter tip intact. 13:55 Inserted saline lock: 20 gauge in left antecubital area, using aseptic technique. em1 13:58 XRAY Chest (1 view) In Process Unspecified. EDMS 14:30 CT Head Brain wo Cont In Process Unspecified. EDMS 15:26 Sanjuanita Rosado MD is Hospitalizing Provider. ms3 19:03 No provider procedures requiring assistance completed. Patient admitted, IV remains in ll1 place. 19:04 Patient has correct armband on for positive identification. Bed in low position. Call ll1 light in reach. Side rails up X2. Client placed on continuous cardiac and pulse oximetry monitoring. NIBP monitoring applied. security monitor on. Administered Medications: 14:05 Drug: Labetalol IV 20 mg Route: IV; Rate: calculated rate; Site: left antecubital; ll1 14:39 Follow up: Response: No adverse reaction; IV Status: Completed infusion; IV Intake: 4ml ll1 14:38 Drug: metoCLOPramide IVP 10 mg Route: IVP; Site: left antecubital; ll1 15:29 Follow up: Response: No adverse reaction ll1 14:38 Drug: diphenhydrAMINE IVP 25 mg Route: IVP; Site: left antecubital; ll1 15:29 Follow up: Response: No adverse reaction ll1 14:39 Drug: Decadron - Dexamethasone IVP 10 mg Route: IVP; Site: left antecubital; ll1 15:29 Follow up: Response: No adverse reaction ll1 Medication: 19:04 VIS not applicable for this client. ll1 Intake: 14:39 IV: 4ml; Total: 4ml. ll1 Outcome: 15:34 Decision to Hospitalize by Provider. ms3 19:44 Condition: stable aa9 20:02 Patient left the ED. aa9 Signatures: Dispatcher [employer] EDMS MichaelLiz mr LunaGaudencio em1 Dorene Richardson RN RN ap3 Hamida Burrell RN RN ll1 Moustapha Fink DO DO ms3 Lisa Ramirez, MICKIE RN aa9 Corrections: (The following items were deleted from the chart) 15:29 15:25 BP 188 / 87; Pulse 71bpm; Resp 17bpm; Pulse Ox 94% RA; ll1 ll1
== END 2023-02-07 18:35 | disposition home or self-care (01) | DRG 305 ==
LOC: ER 13:03 → ERHOLD 15:34 → 2ND 19:30 → OBSVTOIN 02-06 15:00
PROVIDERS: ADMIT Hospitalist; ATTEND Hospitalist
DX: I16.0 Hypertensive urgency (principal); I12.9 Hypertensive chronic kidney disease with stage 1 through stage 4 chronic kidney disease, or unspecified chronic kidney disease; N18.2 Chronic kidney disease, stage 2 (mild); E11.22 Type 2 diabetes mellitus with diabetic chronic kidney disease; Z95.1 Presence of aortocoronary bypass graft; Z88.5 Allergy status to narcotic agent; Z20.822 Contact with and (suspected) exposure to COVID-19; Z90.710 Acquired absence of both cervix and uterus
CPT/HCPCS: 36415; 70450; 70553; 71045; 80048; 80061; 81003; 82947; 83036; 83735; 84100; 84439; 84443; 84484; 85025; 87811; 93005; 93306; 96365; 96375; 99284; A9577; G0378; J1100; J1200; J1650; J1815; J2765